=== PATIENT | male | born 1980 | race Caucasian/White ===

== ENCOUNTER → 2020-03-12 15:11 | Outpatient (CLI) | payer OTHER, SELFPAY ==
--- NOTE | ~2020-03-12 | MR_ITS ---
EXAMINATION: MR ankle RT wo/w con DATE: 03/12/2020 16:46 INDICATION: Achilles tendinitis, ganglion cyst. Right ankle pain. TECHNIQUE: Magnetic resonance imaging (MRI) of the right ankle was performed without and with 20 mL M ultihance intravenous contrast. Sequences included axial and coronal T1-weighted FSE, axial and sagit jett PD-weighted FS FSE, axial, sagittal and coronal T2-weighted FS FSE, axial T1-weighted FS FSE and postcontrast axial and sagittal T1-weighted FS FSE. COMPARISON: None. FINDINGS: Medial ankle ligaments: Deep and superficial deltoid ligaments as well as the spring ligament are normal. Lateral ankle ligaments: The anterior and posterior inferior tibiofibular ligaments are normal. The anterior talofibular, calc aneofibular and posterior talofibular ligaments are normal. Tendons: Subtle increased intrasubstance signal in the distal Achilles tendon consistent with negligible tendi nosis without discrete tear. No surrounding increased fluid signal or enhancement to suggest peritend initis. Small amount of fluid in the tendon sheath surrounding the normal peroneus longus and brevis tendons consistent with minimal tenosynovitis. The tibialis anterior and extensor hallucis longus and extensor digitorum longus tendons are normal. The tibialis posterior, flexor digitorum longus and fl exor hallucis longus tendons are normal. Plantar fascia: Small plantar calcaneal spur. The plantar aponeurosis is otherwise normal. Bones/other: Alignment is normal. No fracture or pathologic marrow replacing process. Mild osteoarthritis at the t ibiotalar articulation with minimal nonuniform joint space narrowing and with minimal cystic change a nd edema extending along the lateral rim of the talar dome. Nonspecific enhancing erosions at the emperatriz ntar aspect of the distal margin of the lateral cuneiform near the insertion of a slip of the tibiali s posterior tendon. Marrow signal is otherwise normal. No free pathologic marrow replacing process. Fluid: Physiologic amount of fluid in the joint spaces. 10 x 6 x 8 mm multilobulated ganglion cyst located a t the lateral side of the [place] fat pad deep to the marker indicating the region of concern situated between the posterior margin of the lateral malleolus and the Achilles tendon which appears to arise from the posterior recess of the subtalar joint. No other abnormal fluid collections. IMPRESSION: 1. 10 x 6 x 8 mm mild lobular ganglion cyst positioned deep to the marker indicating the lesion of co ncern. 2. Negligible Achilles tendinosis without peritendinitis or other associated inflammatory change. 3. Mild tibiotalar osteoarthritis with minimal cystic change along the lateral rim of the talar dome. 4. Nonspecific tiny erosion at the plantar aspect of the lateral cuneiform near the insertion of a sl ip of the tibia is posterior tendon which could be related to inflammatory enthesitis or crystalline deposition disease such as gout. Alternatively this could represent artifactual appearance of erosion resulting from a vascular channel. Reviewed, dictated and finalized at location A. IMPRESSION: 1. 10 x 6 x 8 mm mild lobular ganglion cyst positioned deep to the marker indic ating the lesion of concern. 2. Negligible Achilles tendinosis without peritendinitis or other associated in flammatory change. 3. Mild tibiotalar osteoarthritis with minimal cystic change along the lateral rim of the talar dome. 4. Nonspecific tiny erosion at the plantar aspect of the lateral cuneiform near the insertion of a slip of the tibia is posterior tendon which could be relate d to inflammatory enthesitis or crystalline deposition disease such as gout. Al ternatively this could represent artifactual appearance of eros
[2020-03-12 15:59] LABS: Estimated Glomerular Filt Rate 52
== END ==
PROVIDERS: Visit Provider Podiatrist Foot & Ankle Surgery
DX: M76.61 Achilles tendinitis, right leg (principal); M67.471 Ganglion, right ankle and foot; M19.071 Primary osteoarthritis, right ankle and foot
CPT/HCPCS: 73723; A9577

== ENCOUNTER → 2021-11-06 10:44 | Outpatient (CLI) | payer OTHER, SELFPAY ==
--- NOTE | ~2021-11-06 | CT_ITS ---
EXAMINATION: CT abdomen wo/w con INDICATION: Abnormal findings on diagnostic imaging of the liver TECHNIQUE: Computed tomographic images of the abdomen were obtained prior to and following the admini stration of 100 cc of Omnipaque 350 intravenous contrast in the arterial and portal venous phases. Th e dose-length product (DLP) was 2357.97 mGy-cm. Automated exposure control and iterative reconstructi on technique were employed. COMPARISON: None available FINDINGS: Minimal dependent atelectasis is present in the lung bases. The heart size is there are fannie gical. Surgical clips are noted in the left lower lobe. The liver is diffusely low in attenuation whe n compared with the spleen, consistent with hepatic steatosis. There appear to be some bands of rodrigo l attenuation of the liver which could reflect sparing or possibly fibrosis. Scattered punctate calci fications are noted in these areas. The spleen, pancreas, gallbladder, and adrenal glands are normal. There are no pathologically enlarged abdominal lymph nodes. There is no free intraperitoneal gas or evidence of bowel obstruction. There is a small fat-containing umbilical hernia. IMPRESSION: 1. Diffuse hepatic steatosis with areas of sparing versus fibrosis. Reviewed, dictated and finalized at location B.
[2021-11-06 11:11] LABS: Estimated Glomerular Filt Rate > 60
== END ==
PROVIDERS: PCP Family Medicine; Visit Provider Family Medicine
DX: R93.2 Abnormal findings on diagnostic imaging of liver and biliary tract (principal); K76.0 Fatty (change of) liver, not elsewhere classified
CPT/HCPCS: 74170; Q9967

== ENCOUNTER 2021-11-07 09:37 | Outpatient (CLI) | payer OTHER, SELFPAY ==
--- NOTE | 2021-11-07 | ECG_ITS ---
Measurements Intervals [place] Rate: 73 P: 52 ID: [id number] QRS: 21 QRSD: 110 T: 79 QT: 366 QTc: 405 Interpretive Statements SINUS RHYTHM NONSPECIFIC T-WAVE ABNORMALITY- LAT/HIGH LAT LEADS BASELINE ARTIFACT- I, III BORDERLINE ECG Electronically Signed On 11-07-2021 10:35:36 CDT by Beto Bedoya D.O.
[2021-11-07 10:27] LABS: Anion Gap 9 mmol/L (8-16); Blood Urea Nitrogen 16 mg/dL (9-20); Calcium 9.4 mg/dL (8.4-10.2); Carbon Dioxide 28 mmol/L (22-30); Chloride 103 mmol/L (98-107); Estimated Glomerular Filt Rate > 60; Glucose 125 mg/dL (65-110); Sodium 140 mmol/L (137-145)
== END 2021-11-07 09:38 | disposition home or self-care (01) ==
LOC: ANHLAB 09:42
PROVIDERS: PCP Family Medicine
DX: R22.32 Localized swelling, mass and lump, left upper limb (principal); I10 Essential (primary) hypertension; Z01.818 Encounter for other preprocedural examination; R94.31 Abnormal electrocardiogram [ECG] [EKG]
CPT/HCPCS: 36415; 80048; 93005

== ENCOUNTER 2024-11-02 13:48 | Outpatient (CLI) | payer OTHER, SELFPAY ==
--- NOTE | ~2024-11-02 | US_ITS ---
US thyroid INDICATION: Nontoxic goiter TECHNIQUE: Real-time sonographic images of the thyroid gland were obtained. COMPARISON: No prior studies for comparison. FINDINGS: The right thyroid lobe measures 5.2 x 2.3 x 2 cm. The left thyroid lobe measures 5.4 x 1.9 x 2 cm. There is normal echotexture and echogenicity throughout the thyroid gland. Left thyroid glan d is somewhat heterogeneous without discrete mass. There is focal calcification in the left thyroid g land of no clinical significance. No discrete nodules identified. Normal vascular flow is present. IMPRESSION: 1. Unremarkable thyroid without discrete nodule or abnormal vascularity. Reviewed, dictated and finalized at location A.
== END 2024-11-02 13:49 | disposition home or self-care (01) ==
LOC: GOSHIMG 13:48
PROVIDERS: PCP Nurse Practitioner; Visit Provider Nurse Practitioner
DX: E04.9 Nontoxic goiter, unspecified (principal)
CPT/HCPCS: 76536